=== PATIENT | male | born 1950 | race Caucasian/White ===

== ENCOUNTER → 2017-02-01 | Outpatient (CLI) | payer OTHER ==
[~2017-02-01] MED LIST: ANUCORT HC25 MG; ASPIRIN81 M1 PO; COLACE100 MG PO; DOXYCYCLINE HY100 M5 PO; FLOVENT HFA12 GM INH; Lopressor25 MG PO; PREDNISONE10 MG PO; PROVENTIL0.09 MG/A1 INH; ZETIA10 MG PO; ZOCOR20 MG PO
[2017-02-01 07:49] LABS: HEMOGLOBIN 14.6 g/dl (14.0-18.0); MEAN CELL VOLUME 90.5 fl (80.0-94.0); MEAN CORPUSCULAR HGB 30.7 pg (27.0-31.0); MEAN PLATELET VOLUME 9.8 fl (9.6-12.3); PLATELET COUNT AUTOMATED 195 10*3/uL (130-400); RED BLOOD COUNT 4.75 10*6/uL (4.50-5.90); RED CELL DISTRI WIDTH 12.6 % (0-14.5); WHITE BLOOD COUNT 7.2 10*3/uL (4.8-10.8)
[2017-02-01 08:06] LABS: ALBUMIN 3.6 gm/dl (3.1-4.5); ALKALINE PHOSPHATASE 73 U/L (45-117); BILIRUBIN, TOTAL 0.5 mg/dl (0.2-1.0); BUN 16 mg/dl (7-24); CARBON DIOXIDE 31 mmol/L (21-32); CHLORIDE 107 mmol/L (98-107); CHOLESTEROL 155 mg/dL (<200); EST GLOM FILT AFRICAN AMERICAN > 60 ml/min; GLUCOSE 110 mg/dL (65-99); HDL CHOLESTEROL 49 mg/dl (40-60); LDL CHOLESTEROL 85 mg/dL (9-159); POTASSIUM 4.5 mmol/L (3.5-5.1); SGOT/AST 31 IU/L (3-35); SGPT/ALT 34 U/L (12-78); SODIUM 141 mmol/L (136-145); TOTAL PROTEIN 6.9 gm/dL (6.4-8.2); TRIGLYCERIDES 107 mg/dl (<150); VLDL CHOLESTEROL 21 mg/dL (6-40)
[2017-02-01 08:15] LABS: ATYPICAL LYMPHS 2 % (0-0); BASOPHIL # 0.1 10*3/uL (0-0.1); BASOPHILS 2 % (0-1); EOSINOPHILS 14 % (1-4); LYMPHOCYTE # 1.7 10*3/uL (1.3-4.4); METAMYELOCYTES 1 % (0-0); MONOCYTE # 0.6 10*3/uL (0.1-1.0); NEUTROPHIL # 3.7 10*3/uL (2.3-7.9); NEUTROPHILS 52 % (47-73); TOTAL CELLS COUNTED 100 #CELLS
[2017-02-01 08:16] LABS: PLATELET SUFFICIENCY NORMAL (NORMAL)
== END | disposition home or self-care (01) ==
LOC: LAB 07:16
PROVIDERS: Internal Medicine
DX: Z12.5 Encounter for screening for malignant neoplasm of prostate (principal); E78.00 Pure hypercholesterolemia, unspecified; I10 Essential (primary) hypertension; R35.1 Nocturia

== ENCOUNTER 2017-05-03 11:57 | Emergency (ER) | payer OTHER ==
[~2017-05-03] VITALS: Ht 165.1 cm; Wt 79.4 kg
[2017-05-03 12:05] VITALS: BP 124/80
== END 2017-05-03 13:25 | disposition home or self-care (01) ==
LOC: ED 11:57
DX: S30.860A Insect bite (nonvenomous) of lower back and pelvis, initial encounter (principal); Z79.899 Other long term (current) drug therapy; W57.XXXA Bitten or stung by nonvenomous insect and other nonvenomous arthropods, initial encounter; Y93.89 Activity, other specified; Y92.89 Other specified places as the place of occurrence of the external cause; Y99.8 Other external cause status

== ENCOUNTER 2017-05-31 09:11 | Emergency (ER) | payer OTHER ==
[~2017-05-31] VITALS: Ht 167.6 cm; Wt 79.8 kg
[2017-05-31 09:28] VITALS: BP 120/70
[2017-05-31] MEDS ORDERED: AUGMENTIN 875875 MG PO (11:07)
[2017-05-31] MEDS ORDERED: MEDROL DOSEPAK4 MG PO (11:07)
[2017-05-31] MEDS ORDERED: PROAIR HFA8.5 GM INH (11:07)
== END 2017-05-31 11:13 | disposition home or self-care (01) ==
LOC: ED 09:11
DX: J40 Bronchitis, not specified as acute or chronic (principal); Z79.82 Long term (current) use of aspirin; Z79.899 Other long term (current) drug therapy; Z90.89 Acquired absence of other organs

== ENCOUNTER → 2017-08-23 | Outpatient (CLI) | payer OTHER, MEDICARE ==
[~2017-08-23] MED LIST changes: +AUGMENTIN 875875 MG PO; +MEDROL DOSEPAK4 MG PO; +PROAIR HFA8.5 GM INH
[2017-08-23 08:51] LABS: BASO # 0.1 10*3/uL (0.0-0.1); BASO % 0.8 % (0.0-1.0); HEMATOCRIT 43.7 % (42.0-52.0); LYMPH # 1.7 10*3/uL (1.3-4.4); LYMPH % 20.9 % (27.0-41.0); MEAN CELL VOLUME 91.4 fl (80.0-94.0); MEAN CORPUSCULAR HGB 31.4 pg (27.0-31.0); MEAN CORPUSCULAR HGB CONC 34.3 g/dl (33.0-37.0); MEAN PLATELET VOLUME 9.7 fl (9.6-12.3); MONO # 0.5 10*3/uL (0.1-1.0); MONO % 6.8 % (3.0-9.0); NEUT # 4.8 10*3/uL (2.3-7.9); NEUT % 59.2 % (47.0-73.0); PLATELET COUNT AUTOMATED 228 10*3/uL (130-400); RED BLOOD COUNT 4.78 10*6/uL (4.50-5.90); RED CELL DISTRI WIDTH 12.6 % (0-14.5)
[2017-08-23 09:09] LABS: ALBUMIN 3.4 gm/dl (3.1-4.5); ALKALINE PHOSPHATASE 77 U/L (45-117); BUN 13 mg/dl (7-24); CHLORIDE 106 mmol/L (98-107); CHOLESTEROL 147 mg/dL (<200); CREATININE 1.06 mg/dL (0.70-1.30); HDL CHOLESTEROL 42 mg/dl (40-60); LDL CHOLESTEROL 82 mg/dL (9-159); POTASSIUM 4.3 mmol/L (3.5-5.1); SGOT/AST 22 IU/L (3-35); SGPT/ALT 28 U/L (12-78); SODIUM 140 mmol/L (136-145); TOTAL PROTEIN 7.1 gm/dL (6.4-8.2); TRIGLYCERIDES 116 mg/dl (<150); VLDL CHOLESTEROL 23 mg/dL (6-40)
== END | disposition home or self-care (01) ==
LOC: LAB 08:11
PROVIDERS: Internal Medicine
DX: I10 Essential (primary) hypertension (principal); I25.810 Atherosclerosis of coronary artery bypass graft(s) without angina pectoris

== ENCOUNTER 2019-02-03 22:24 | Emergency (ER) | payer OTHER, MEDICARE ==
[~2019-02-03] VITALS: Ht 167.6 cm; Wt 81.6 kg
[2019-02-03 22:27] VITALS: BP 136/76
[2019-02-03] MEDS ORDERED: NAPROSYN500 MG PO (23:50)
== END 2019-02-04 00:09 | disposition home or self-care (01) ==
LOC: ED 22:24
DX: M70.22 Olecranon bursitis, left elbow (principal); I25.10 Atherosclerotic heart disease of native coronary artery without angina pectoris; I10 Essential (primary) hypertension; E78.5 Hyperlipidemia, unspecified; Z79.899 Other long term (current) drug therapy; Z79.82 Long term (current) use of aspirin; Y93.89 Activity, other specified

== ENCOUNTER 2019-02-27 18:29 | Inpatient (IN) | payer OTHER, MEDICARE ==
[~2019-02-27] VITALS: Ht 167.6 cm; Wt 71.2 kg
--- NOTE | ~2019-02-27 | EKG ---
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
--- NOTE | ~2019-02-27 | ST ---
[place], [place] EXERCISE STRESS TEST REPORT NAME: LC [facility]KH [id number] UNIT #: [id number] ROOM: 506 DOCTOR: GREYSON GILLETTE MD BIRTHDATE: [birth year] DOS: LEXISCAN STRESS EKG REPORT REFERRING PHYSICIAN: Dr. Novak. INDICATIONS: Central chest pain. DESCRIPTION: The patient underwent standard protocol Lexiscan stress EKG. Baseline EKG normal sinus rhythm, heart rate of 74 with blood pressure of 100/70. The patient's peak heart rate was 96 with a blood pressure of 82/52. The patient had no chest pain, no ischemic changes, no arrhythmias. The patient did have a vagal reaction to the Lexiscan. He recovered quickly and was feeling normal with conclusion of the study. SUMMARY OF FINDINGS: Unremarkable Lexiscan stress EKG. Please see separate report for perfusion scan imaging results. GREYSON GILLETTE MD CM:STRESS:EXERCISE STRESS TEST REPORT [id number] GREYSON GILLETTE MD
--- NOTE | ~2019-02-27 | EKG ---
[place], [place] ELECTROCARDIOGRAM REPORT NAME: LC PARIKH UNIT #: [id number] ROOM: 506 DOCTOR: AMINA DRAFT REPORT BIRTHDATE: [birth year] [facility] Test Date: 2019-02-27 Test Time: 23:46:59 Pat Name: LC PARIKH Department: Room: 506 Gender: M Logger: : 1950 Requested By: JOSE FUNES Order Number: [id number] Reading MD: Jeff Ramirez MD Measurements Intervals [place] Rate: 67 P: 37 NM: 146 QRS: 39 QRSD: 95 T: 31 QT: 395 QTc: 417 Interpretive Statements Sinus rhythm Baseline wander in lead(s) V3 Electronically Signed On 03-02-2019 8:01:58 PDT by Jeff Ramirez MD CM:EKGRPT:ELECTROCARDIOGRAM REPORT [id number] JOSE HUYNH DRAFT REPORT JOSE FUNES M.D.
--- NOTE | ~2019-02-27 | EKG ---
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
[~2019-02-27 18:29] MED LIST changes: +NAPROSYN500 MG PO
[2019-02-27 18:39] VITALS: BP 123/77
--- NOTE | 2019-02-27 18:40 | NUR ---
PATIENT DENIES ANY WOUNDS A&OX4.
[2019-02-27 18:54] LABS: BASO # 0.1 10*3/uL (0.0-0.1); BASO % 0.9 % (0.0-1.0); EOS # 0.6 10*3/uL (0.0-0.4); EOS % 9.4 % (1.0-4.0); HEMATOCRIT 43.6 % (42.0-52.0); HEMOGLOBIN 14.9 g/dl (14.0-18.0); LYMPH # 1.7 10*3/uL (1.3-4.4); LYMPH % 24.5 % (27.0-41.0); MEAN CORPUSCULAR HGB 31.1 pg (27.0-31.0); MEAN CORPUSCULAR HGB CONC 34.2 g/dl (33.0-37.0); MEAN PLATELET VOLUME 10.2 fl (9.6-12.3); MONO % 15.2 % (3.0-9.0); NEUT # 3.4 10*3/uL (2.3-7.9); NEUT % 49.9 % (47.0-73.0); PLATELET COUNT AUTOMATED 206 10*3/uL (130-400); RED BLOOD COUNT 4.79 10*6/uL (4.50-5.90); RED CELL DISTRI WIDTH 12.7 % (0-14.5); WHITE BLOOD COUNT 6.8 10*3/uL (4.8-10.8)
[2019-02-27 19:05] LABS: ACT PARTIAL THROMBO TIME 29.6 SECONDS (20.0-32.1)
[2019-02-27 19:15] LABS: ALBUMIN 3.4 gm/dl (3.1-4.5); ALKALINE PHOSPHATASE 74 U/L (45-117); BUN 12 mg/dl (7-24); CHLORIDE 105 mmol/L (98-107); CREATININE 1.08 mg/dL (0.70-1.30); POTASSIUM 4.4 mmol/L (3.5-5.1); SGOT/AST 35 IU/L (3-35); SGPT/ALT 30 U/L (12-78); SODIUM 135 mmol/L (136-145); TOTAL PROTEIN 7.3 gm/dL (6.4-8.2)
[2019-02-27 19:32] LABS: TROPONIN I < 0.015 ng/ml (<0.045)
[2019-02-27 19:47] VITALS: BP 121/69
--- NOTE | 2019-02-27 20:00 | NUR ---
A 68, admitted to 5E, under the services of INGA Cole DO with a diagnosis of CHEST PAIN. Chief complaint is CHEST PAIN. Patient arrived via ambulatory from ER. Monitor applied. Initial assessment completed. Vital signs taken and recorded. INGA COLE DO notified of admission to the unit. Orders received. See assessment for past medical history, medications and allergies. Patient and/or family oriented to unit. [facility] visitation policy reviewed. Clothing/patient valuable form completed. JOSIANE GREENE
[2019-02-28] VITALS: BP 108/67
[2019-02-28 06:21] LABS: BASO % 0.7 % (0.0-1.0); EOS # 0.8 10*3/uL (0.0-0.4); EOS % 12.9 % (1.0-4.0); HEMATOCRIT 45.5 % (42.0-52.0); HEMOGLOBIN 15.1 g/dl (14.0-18.0); LYMPH # 1.5 10*3/uL (1.3-4.4); LYMPH % 25.4 % (27.0-41.0); MEAN CELL VOLUME 91.9 fl (80.0-94.0); MEAN CORPUSCULAR HGB 30.5 pg (27.0-31.0); MEAN CORPUSCULAR HGB CONC 33.2 g/dl (33.0-37.0); MEAN PLATELET VOLUME 9.8 fl (9.6-12.3); MONO # 0.7 10*3/uL (0.1-1.0); MONO % 12.2 % (3.0-9.0); NEUT # 2.9 10*3/uL (2.3-7.9); NEUT % 48.6 % (47.0-73.0); PLATELET COUNT AUTOMATED 198 10*3/uL (130-400); RED BLOOD COUNT 4.95 10*6/uL (4.50-5.90); RED CELL DISTRI WIDTH 12.8 % (0-14.5)
[2019-02-28] MEDS ORDERED: ZYRTEC10 MG PO (06:26)
--- NOTE | 2019-02-28 06:30 | NUR ---
PT REQUESTING MEDICATION FOR C/O ALLERGIES. STATES HE TAKES OTC ZYRTEC @ HOME. NOTIFIED. INSTRUCTED TO ORDER ZYRTEC PER HOME SCHEDULE.
[2019-02-28 06:53] LABS: ALBUMIN 3.2 gm/dl (3.1-4.5); BUN 12 mg/dl (7-24); CHLORIDE 107 mmol/L (98-107); CHOLESTEROL 136 mg/dL (<200); CREATININE 0.95 mg/dL (0.70-1.30); PHOSPHOROUS 3.6 mg/dL (2.5-4.9); POTASSIUM 3.9 mmol/L (3.5-5.1); SGOT/AST 22 IU/L (3-35); SGPT/ALT 27 U/L (12-78); SODIUM 139 mmol/L (136-145); TRIGLYCERIDES 90 mg/dl (<150); VLDL CHOLESTEROL 18 mg/dL (6-40)
--- NOTE | 2019-02-28 06:55 | NUR ---
PO ZYRTEC GIVEN WITH SMALL SIP OF WATER PER ORDER.
[2019-02-28 07:01] LABS: ALKALINE PHOSPHATASE 76 U/L (45-117); HDL CHOLESTEROL 39 mg/dl (40-60); LDL CHOLESTEROL 79 mg/dL (9-159)
--- NOTE | 2019-02-28 07:47 | NUR ---
MED REC REVIEWED WITH PT. UP TO DATE PER PT RECALL/MED CLAIMS HX.
[2019-02-28 07:56] LABS: VITAMIN D, 25-HYDROXY 40.2 ng/mL (30-100)
[2019-02-28 08:00] VITALS: BP 110/64
--- NOTE | 2019-02-28 10:40 | NUR ---
INFORMED CONSENT OBTAINED FOR LEXISCAN NUCLEAR STRESS TEST WITH DR. GILLETTE. RESTING EKG NSR WITH A RESTING HR OF 74 WITH BP OF 100/70. LUNGS WITH INSPIRATORY WHEEZE RIGHT SIDE WITH SPO2 OF 96% ON ROOM AIR. PT COMPLETED A 1:00 LEXISCAN PROTOCOL RECEIVING LEXISCAN 0.4 MG IV OVER 10 SECONDS. HAD NO CHEST PAIN OR ANY EKG CHANGES. IMMEDIATE RECOVERY HR OF 96 WITH BP OF 80/50. PT C/O "ODD FEELING" AND HANDS SHAKY. PLACED IN RECLING POSITION. IMMEDIATELY BP RECHECK 82/52 THEN INCREASED TO 102/62. LAST RECOVERY RECOVERY HR OF 87 WITH BP OF 104/68. AWAITING SCANNING IN STABLE CONDITION. WITH PATIENT.
--- NOTE | 2019-02-28 11:53 | NUR ---
Chef De Froid in to talk to patient. Patient states lives at HOME with . There are FEW steps in the home. Physician: ARIC HORNER Pharmacy: [facility] [place] health services: NONE Patient's level of ADLs: INDEPENDENT Patient has working utilities: YES DME: NONE Follow-up physician's appointment after d/c: WILL BE MADE BY HOSPITALIST NURSE DIRECTOR ON DISCHARGE Does patient want to access PORTAL?: NO Discharge plan PT LIVES AT HOME WITH HIS AND IS INDEPENDENT IN HIS CARE. DENIES HE WILL HAVE ANY NEEDS ON DISCAHRGE. WILL CONTINUE TO FOLLOW. WILL TRANSPORT HIM HOME ON DISCHARGE.. COREY CASAS
[2019-02-28 12:00] VITALS: BP 109/67
[2019-02-28 16:00] VITALS: BP 113/62
--- NOTE | 2019-02-28 18:35 | NUR ---
DISCHARGED AT THIS TIME. IV REMOVED AND PRESSURE DRESSING APPLIED. HEART MONITOR RETURNED TO FLOOR.
== END 2019-02-28 18:35 | disposition home or self-care (01) | DRG 313 ==
LOC: ED 18:29 → 5E 19:42 → EDHOLD 19:42 → 5E 19:57
PROVIDERS: Emergency Medicine; Internal Medicine; ADMIT Internal Medicine
PROC: 3E073KZ Introduction of Other Diagnostic Substance into Coronary Artery, Percutaneous Approach (ICD-10-PCS; principal; 2019-02-28)
PROC: 4A02XM4 Measurement of Cardiac Total Activity, External Approach (ICD-10-PCS; principal; 2019-02-28)
DX: R07.9 Chest pain, unspecified (principal); E44.0 Moderate protein-calorie malnutrition; E87.1 Hypo-osmolality and hyponatremia; I25.10 Atherosclerotic heart disease of native coronary artery without angina pectoris; E78.5 Hyperlipidemia, unspecified; I10 Essential (primary) hypertension; Z82.49 Family history of ischemic heart disease and other diseases of the circulatory system; Z95.1 Presence of aortocoronary bypass graft; Z79.51 Long term (current) use of inhaled steroids; Z79.82 Long term (current) use of aspirin; Z79.899 Other long term (current) drug therapy; Z68.25 Body mass index [BMI] 25.0-25.9, adult

== ENCOUNTER → 2020-06-08 | Outpatient (CLI) | payer OTHER, MEDICARE ==
[~2020-06-08] MED LIST changes: +ZYRTEC10 MG PO
== END | disposition home or self-care (01) ==
LOC: COVID19 08:12
PROVIDERS: ATTEND Internal Medicine
DX: Z20.828 Contact with and (suspected) exposure to other viral communicable diseases (principal)

== ENCOUNTER → 2021-02-17 | Day surgery (SDC) | payer OTHER, MEDICARE ==
[~2021-02-17] VITALS: Ht 165.1 cm; Wt 79.4 kg
[~2021-02-17] MED LIST changes: +CARAFATE1 G1 PO; +PROTONIX40 MG PO
[2021-02-17 06:54] VITALS: BP 158/79
[2021-02-17 07:55] VITALS: BP 109/68
[2021-02-17 08:10] VITALS: BP 120/79
[2021-02-17 08:25] VITALS: BP 123/80
== END | disposition home or self-care (01) ==
LOC: SDC 02-13 10:15
PROVIDERS: ATTEND Surgery
DX: Z12.11 Encounter for screening for malignant neoplasm of colon (principal); K29.50 Unspecified chronic gastritis without bleeding; I25.10 Atherosclerotic heart disease of native coronary artery without angina pectoris; R13.10 Dysphagia, unspecified; I10 Essential (primary) hypertension; E78.00 Pure hypercholesterolemia, unspecified; K44.9 Diaphragmatic hernia without obstruction or gangrene; Z95.1 Presence of aortocoronary bypass graft; J45.909 Unspecified asthma, uncomplicated; Z95.5 Presence of coronary angioplasty implant and graft; Z79.899 Other long term (current) drug therapy; Z20.822 Contact with and (suspected) exposure to COVID-19

== ENCOUNTER → 2022-08-01 | Outpatient (CLI) | payer MEDICARE ==
[2022-08-01 07:22] LABS: MEAN CELL VOLUME 93.2 fl (80.0-94.0); MEAN CORPUSCULAR HGB 31.3 pg (27.0-31.0); MEAN CORPUSCULAR HGB CONC 33.5 g/dl (33.0-37.0); MEAN PLATELET VOLUME 9.5 fl (9.6-12.3); RED BLOOD COUNT 5.15 10*6/uL (4.50-5.90); RED CELL DISTRI WIDTH 12.9 % (0-14.5); WHITE BLOOD COUNT 7.6 10*3/uL (4.8-10.8)
[2022-08-01 07:40] LABS: ALKALINE PHOSPHATASE 61 U/L (46-116); BUN 15 mg/dl (9-23); CHLORIDE 105 mmol/L (98-107); CHOLESTEROL 165 mg/dL (<200); LDL CHOLESTEROL 88 mg/dL (9-159); POTASSIUM 4.4 mmol/L (3.4-5.1); SGPT/ALT 26 U/L (10-49); TOTAL PROTEIN 7.4 gm/dL (6.0-8.0); TRIGLYCERIDES 172 mg/dl (<150)
== END | disposition home or self-care (01) ==
LOC: LAB 01:24
PROVIDERS: ATTEND Physician Assistant
DX: Z12.5 Encounter for screening for malignant neoplasm of prostate (principal); I25.810 Atherosclerosis of coronary artery bypass graft(s) without angina pectoris; I10 Essential (primary) hypertension

== ENCOUNTER 2022-12-30 11:10 | Emergency (ER) | payer MEDICARE, OTHER ==
[~2022-12-30] VITALS: Ht 167.6 cm; Wt 81.6 kg
[2022-12-30 11:16] VITALS: BP 127/84
[2022-12-30 11:48] LABS: BASO # 0.1 10*3/uL (0.0-0.1); BASO % 0.9 % (0.0-1.0); EOS # 1.3 10*3/uL (0.0-0.4); EOS % 13.2 % (1.0-4.0); HEMATOCRIT 43.6 % (42.0-52.0); LYMPH # 1.7 10*3/uL (1.3-4.4); LYMPH % 18.2 % (27.0-41.0); MEAN CELL VOLUME 89.7 fl (80.0-94.0); MEAN CORPUSCULAR HGB 31.3 pg (27.0-31.0); MEAN CORPUSCULAR HGB CONC 34.9 g/dl (33.0-37.0); MEAN PLATELET VOLUME 9.5 fl (9.6-12.3); MONO # 0.7 10*3/uL (0.1-1.0); NEUT # 5.8 10*3/uL (2.3-7.9); NEUT % 60.5 % (47.0-73.0); PLATELET COUNT AUTOMATED 184 10*3/uL (130-400); RED BLOOD COUNT 4.86 10*6/uL (4.50-5.90); RED CELL DISTRI WIDTH 12.9 % (0-14.5); WHITE BLOOD COUNT 9.5 10*3/uL (4.8-10.8)
[2022-12-30 12:30] LABS: ALKALINE PHOSPHATASE 78 U/L (46-116); BUN 12 mg/dl (9-23); CHLORIDE 108 mmol/L (98-107); POTASSIUM 3.9 mmol/L (3.4-5.1); SGPT/ALT 22 U/L (10-49); TOTAL PROTEIN 7.2 gm/dL (6.0-8.0)
[2022-12-30] MEDS ORDERED: PREDNISONE20 M1 PO (14:00)
[2022-12-30] MEDS ORDERED: MELOXICAM10 MG PO (14:00)
== END 2022-12-30 13:59 | disposition home or self-care (01) ==
LOC: ED 11:10
PROVIDERS: Nurse Practitioner Family
DX: M10.9 Gout, unspecified (principal); I10 Essential (primary) hypertension; I25.10 Atherosclerotic heart disease of native coronary artery without angina pectoris; E78.00 Pure hypercholesterolemia, unspecified; Z90.89 Acquired absence of other organs; Z98.890 Other specified postprocedural states

== ENCOUNTER → 2023-09-29 | Outpatient (CLI) | payer OTHER ==
[~2023-09-29] MED LIST changes: +MELOXICAM10 MG PO; +PREDNISONE20 M1 PO
== END | disposition home or self-care (01) ==
LOC: RAD 09:27
PROVIDERS: ATTEND Physician Assistant
DX: J84.9 Interstitial pulmonary disease, unspecified (principal)

== ENCOUNTER → 2024-01-05 | Outpatient (CLI) | payer OTHER | LOC: CARD 02:02 | PROVIDERS: ATTEND Internal Medicine Cardiovascular Disease | DX: I25.10 Atherosclerotic heart disease of native coronary artery without angina pectoris (principal); R01.1 Cardiac murmur, unspecified ==

== ENCOUNTER → 2024-05-11 | Outpatient (CLI) | payer OTHER | END | disposition home or self-care (01) | LOC: US 09:36 | PROVIDERS: ATTEND Physician Assistant | DX: N20.0 Calculus of kidney (principal); N28.9 Disorder of kidney and ureter, unspecified; N28.1 Cyst of kidney, acquired ==

== ENCOUNTER → 2024-06-12 | Outpatient (CLI) | payer OTHER ==
[~2024-06-12] MED LIST changes: +IOHEXOL 300 MG/ML 100 ML VIAL IV ONE
== END | disposition home or self-care (01) ==
LOC: LAB 07:55 → CT 08:00
PROVIDERS: ATTEND Urology
DX: N20.0 Calculus of kidney (principal); D40.0 Neoplasm of uncertain behavior of prostate; R53.83 Other fatigue; N28.89 Other specified disorders of kidney and ureter; N28.1 Cyst of kidney, acquired